=== PATIENT | female | born 1965 | race Caucasian/White ===

== ENCOUNTER 2017-04-29 12:17 | Emergency (ER) | payer OTHER, BC ==
[~2017-04-29] VITALS: Ht 167.6 cm; Wt 55.4 kg
[~2017-04-29 12:17] MED LIST: ADVAIR DISK1 INH; ADVAIR HF1; ALBUTERO3; ALENDRONATE70 MG PO; AMITRIPTYLIN10 MG PO; AMOXICILLIN875 MG PO; AUGMENTIN500TAB PO; CALCIUM +D OR; CHERATUSSIN OR; CHERATUSSIN PO; CITALOPRAM20 MG PO; FLEXERIL OR; IBUPROFEN800 MG PO; LYRICA50 MG PO; MEDDOSEPAK PO; MUCINEX600 MG OR; MULTIVITAMI1 OR; PRILOSEC40 MG PO; PROAIR HFA IN; PROVENTIL0.083 % NEB; RYBIX ODT50 MG PO; SINGULAIR 10 MG10 MG; SINGULAIR 10 MG10 MG OR; SINGULAIR PO; SUDAFED PO; ULTRAM50 M1 OR; VALTREX500 MG PO
[2017-04-29] MEDS ORDERED: PERCOCET 5/325M1 TAB PO (15:11)
[2017-04-29 15:42] VITALS: BP 106/70
== END 2017-04-29 15:42 | disposition home or self-care (01) | DRG 563 ==
LOC: ED 12:17
PROC: 2W3CX1Z Immobilization of Right Lower Arm using Splint (ICD-10-PCS; principal; 2017-04-29)
DX: S52.124A Nondisplaced fracture of head of right radius, initial encounter for closed fracture (principal); S52.134A Nondisplaced fracture of neck of right radius, initial encounter for closed fracture; W01.0XXA Fall on same level from slipping, tripping and stumbling without subsequent striking against object, initial encounter; Y93.89 Activity, other specified; Y92.219 Unspecified school as the place of occurrence of the external cause

== ENCOUNTER → 2018-06-25 | Outpatient (REF) | payer BC ==
[~2018-06-25] MED LIST changes: +PERCOCET 5/325M1 TAB PO
== END | disposition home or self-care (01) | DRG 556 ==
LOC: MRI 07:20
PROVIDERS: ATTEND Physician Assistant Medical
DX: M25.562 Pain in left knee (principal)

== ENCOUNTER 2019-08-22 17:59 | Emergency (ER) | payer OTHER, BC ==
[2019-08-22 18:19] LABS: HEMATOCRIT 42.4 % (37.0-47.0); HEMOGLOBIN 14.3 g/dl (12.0-16.0); IMMATURE GRANULOCYTES 0.2 % (0.0-5.0); MEAN CELL VOLUME 84.6 fL CALC (80.0-100.0); MEAN CORPUSCULAR HGB 28.5 pG CALC (26.0-32.0); MEAN CORPUSCULAR HGB CONC 33.7 g/dL CAL (32.0-36.0); NEUT# 3.66 thou/uL (2.00-7.15); RED BLOOD COUNT 5.01 mill/uL (4.20-5.60); RED CELL DISTRI WIDTH 12.6 % (11.5-15.5)
[2019-08-22] MEDS ORDERED: LORTAB 5/3255 MG PO (18:28)
[2019-08-22 18:41] LABS: ALBUMIN 4.9 g/dL (3.2-5.0); ALKALINE PHOSPHATASE 96 u/l (38-126); ANION GAP 14 (6-22 (CALC)); BILIRUBIN, TOTAL 0.7 mg/dL (0.0-1.4); BUN 15 mg/dL (7-17); BUN/CREATININE RATIO 27 (12-20 (CALC)); CARBON DIOXIDE 24 mmol/l (22-30); CHLORIDE 104 mmol/l (95-108); CREATININE 0.5 mg/dL (0.5-1.0); GFR > 60 ML/MIN (>=60 (CALC)); GFR FOR AFR.AMER. > 60 ML/MIN (>=60 (CALC)); POTASSIUM 3.7 mmol/l (3.5-5.1); SGOT/AST 30 u/l (14-36); SODIUM 138 mmol/l (137-146)
[2019-08-22 19:55] LABS: URINE BILIRUBIN - DIPSTICK NEGATIVE (NEGATIVE); URINE BLOOD DIPSTICK NEGATIVE (NEGATIVE); URINE CLARITY CLEAR; URINE COLOR YELLOW; URINE GLUCOSE - DIPSTICK NEGATIVE (NEGATIVE); URINE KETONE TRACE mg/dL (NEGATIVE); URINE LEUK ESTERASE NEGATIVE (Negative); URINE NITRITE - DIPSTICK NEGATIVE (Negative); URINE PH 8.5 (4.5-8.0); URINE PROTEIN - DIPSTICK NEGATIVE (NEG-TRACE); URINE UROBILINOGEN - DIPSTICK 0.2 E.U./dL (0.2)
[2019-08-22 21:21] VITALS: BP 117/63
== END 2019-08-22 20:54 | disposition home or self-care (01) | DRG 948 ==
LOC: ED 17:59
DX: G89.18 Other acute postprocedural pain (principal); F41.9 Anxiety disorder, unspecified
CPT/HCPCS: J2060

== ENCOUNTER 2023-04-28 07:14 | Day surgery (SDC) | payer BC ==
[~2023-04-28] VITALS: Ht 167.6 cm; Wt 59.0 kg
[~2023-04-28 07:14] MED LIST changes: +ALBUTEROL SUL1.25 MG IN; +ESTRACE VAG0.1 MG/GM TOP; +FLEXERIL5 M1 PO; +LORTAB 5/3255 MG PO; +MIRTAZAPINE15 MG PO; +NAPROXEN500 MG PO; +VENTOLIN HFA108 MCG INHW/SPAC
[2023-04-28 09:49] VITALS: BP 113/68
== END 2023-04-28 10:00 | disposition home or self-care (01) | DRG 951 ==
LOC: ENDO 07:14
PROVIDERS: ATTEND Internal Medicine Gastroenterology
PROC: 0DJD8ZZ Inspection of Lower Intestinal Tract, Via Natural or Artificial Opening Endoscopic (ICD-10-PCS; principal; 2023-04-28)
DX: Z12.11 Encounter for screening for malignant neoplasm of colon (principal); K64.8 Other hemorrhoids